=== PATIENT | female | born 1955 | race Caucasian/White ===

== ENCOUNTER 2016-06-06 10:33 | Emergency (ER) | payer OTHER, BC ==
[~2016-06-06] VITALS: Ht 160 cm; Wt 85.2 kg
[2016-06-06 12:39] VITALS: BP 121/71
== END 2016-06-06 12:42 | disposition home or self-care (01) ==
LOC: EME 10:33
DX: Z76.0 Encounter for issue of repeat prescription (principal); G89.29 Other chronic pain; E78.5 Hyperlipidemia, unspecified; Z86.73 Personal history of transient ischemic attack (TIA), and cerebral infarction without residual deficits; J45.909 Unspecified asthma, uncomplicated; Z98.84 Bariatric surgery status
CPT/HCPCS: 99281; 99283